=== PATIENT | female | born 1980 | race Caucasian/White ===

== ENCOUNTER 2017-04-03 10:20 | Emergency (ER) | payer MEDICAID, OTHER ==
[2017-04-03 10:44] VITALS: BP 132/84
--- NOTE | 2017-04-17 17:26 | UC ---
[facility] HPI - HPI Summary HPI Summary: 36 YEAR OLD FEMALE PRESENTS WITH COMPLAINS OF LARGE DENTAL ABSCESS. - History of Current Complaint Chief Complaint: UCDentalProblem Stated Complaint: ORAL COMPLAINT Time Seen by Provider: 04/03/17 10:44 Hx Last Menstrual Period: ~03/10/17 Pain Intensity: 6 Pain Scale Used: 0-10 Numeric - Allergies/Home Medications Allergies/Adverse Reactions: Allergies Allergy/AdvReac Type Severity Reaction Status Date / Time Diclofenac Allergy Severe SKIN Verified 04/03/17 10:39 LIN, THROAT TIGHTNESS Propoxyphene [From Darvon] Allergy Severe THROAT Verified 04/03/17 10:39 CLOSES, VOMITING Home Medications: Home Medications Acetaminophen [Acetaminophen Extra Stren] 1,000 mg PO Q6H PRN 04/03/17 [History Confirmed 04/03/17] Bupropion XL* [Wellbutrin XL *] 300 mg PO DAILY 04/03/17 [History Confirmed ] PMH/Surg Hx/FS Hx/Imm Hx - Surgical History Surgical History: Yes Surgery Procedure, Year, and Place: TUBAL LIGATION, BREAST ABSCESS, LEFT THUMB SURGERY. LEFT CARPAL TUNNEL SX--09/2013. RIGHT CARPAL TUNNEL SX-08/2014 - Social History Alcohol Use: Rare Substance Use Type: Prescribed Substance Use Comment - Amount & Last Used: oxycodone 5mg q6h prn Smoking Status (MU): Light Every Day Tobacco Smoker Type: Cigarettes Amount Used/How Often: ~1/4 PPD Length of Time of Smoking/Using Tobacco: Since Age 13 Have You Smoked in the Last Year: Yes Review of Systems Constitutional: Negative Skin: Negative Eyes: Negative ENT: Dental Pain Respiratory: Negative Cardiovascular: Negative Gastrointestinal: Negative Genitourinary: Negative Motor: Negative Neurovascular: Negative Musculoskeletal: Negative Neurological: Negative Psychological: Negative All Other Systems Reviewed And Are Negative: Yes Physical Exam Triage Information Reviewed: Yes Vital Signs: Initial Vital Signs Temp 36.3 C 04/03/17 10:37 Pulse 102 04/03/17 10:37 Resp 16 04/03/17 10:37 BP 132/84 04/03/17 10:37 Pulse Ox 98 04/03/17 10:37 Eye Exam: Normal ENT Exam: Normal Dental: Positive: Abscess @ Neck exam: Normal Neck: Positive: 1 Respiratory Exam: Normal Cardiovascular Exam: Normal Abdominal Exam: Normal Musculoskeletal Exam: Normal Neurological Exam: Normal Psychological Exam: Normal Skin Exam: Normal Dental Complaint Course/Dx - Course Course Of Treatment: DENTAL ABSCESS - Differential Dx/Diagnosis Provider Diagnoses: DENTAL ABSCESS Discharge - Discharge Plan Condition: Stable Disposition: AGAINST MEDICAL ADVICE Prescriptions: Amoxicillin/Clavulanate TAB* [Augmentin TAB 875*] 875 mg PO BID #20 tab Chlorhexidine MW 0.12% 473ML* [Peridex Mouth Wash 0.12%*] 473 ml MT TID PC #[id number] btl Patient Education Materials: Toothache (ED) Referrals: Abhi Gayle MD [Medical Doctor] - If Needed
== END 2017-04-03 10:53 | disposition home or self-care (01) ==
LOC: UCCORT 10:20
DX: K04.7 Periapical abscess without sinus (principal); F17.210 Nicotine dependence, cigarettes, uncomplicated
CPT/HCPCS: 99212; G0463

== ENCOUNTER 2018-03-20 15:30 | Emergency (ER) | payer OTHER ==
--- NOTE | 2018-03-20 16:38 | UC ---
Skin Complaint HPI - HPI Summary HPI Summary: Patient states that 4 days ago she dropped a cigarette on her left arm she states that she flexed her arm reflexively as a result got a burn. She admits that she has been picking at the site and now it has become red and swollen. She states that she is here because her mother thinks it is infected. She denies any joint pain she denies any fever or chills and offers no other complaints or past history does include recovery from drug abuse; however, patient is adamant that she has been clean for at least 2-3 years and this is not an injection site from any type of recent use. Her last tetanus shot was within 10 years. - History of Current Complaint Time Seen by Provider: 03/20/18 16:32 Stated Complaint: BURN - L ELBOW Hx Obtained From: Patient Hx Last Menstrual Period: ~03/10/17 Onset/Duration: Gradual Onset Timing: Constant Alleviating Factor(s): Nothing Associated Signs & Symptoms: Positive: Rash - Allergy/Home Medications Allergies/Adverse Reactions: Allergies Allergy/AdvReac Type Severity Reaction Status Date / Time diclofenac Allergy Severe Skin Verified 03/20/18 16:49 rodgers, throat tightness propoxyphene [From Darvon] Allergy Vomiting,throat Verified 03/20/18 16:49 closes Home Medications: Home Medications Dextroamphetamine/Amphetamine [Adderall 20 mg Tablet] 1 tab PO TID 03/20/18 [ History Confirmed 03/20/18] LORazepam TAB(*) [Ativan 1 MG TAB (*)] 1 mg PO BID 03/20/18 [History Confirmed 03/20/18] Methadone TAB* [Dolophine TAB*] 135 mg PO DAILY 03/20/18 [History Confirmed ] PARoxetine HCL TAB* [Paxil TAB*] 40 mg PO DAILY 03/20/18 [History Confirmed ] Review of Systems Constitutional: Negative Skin: Rash Eyes: Negative ENT: Negative Respiratory: Negative Cardiovascular: Negative Gastrointestinal: Negative Genitourinary: Negative Motor: Negative Neurovascular: Negative Musculoskeletal: Negative Neurological: Negative Psychological: Negative Is Patient Immunocompromised?: No All Other Systems Reviewed And Are Negative: Yes PMH/Surg Hx/FS Hx/Imm Hx - Additional Past Medical History Additional PMH: 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 Psychological History: Anxiety, Depression - Surgical History Surgical History: Yes Surgery Procedure, Year, and Place: TUBAL LIGATION, BREAST ABSCESS, LEFT THUMB SURGERY. LEFT CARPAL TUNNEL SX--09/2013. RIGHT CARPAL TUNNEL SX-08/2014 - Family History Known Family History: Positive: None - Social History Lives: With Family Alcohol Use: Rare Substance Use Type: Prescribed Substance Use Comment - Amount & Last Used: oxycodone 5mg q6h prn Smoking Status (MU): Light Every Day Tobacco Smoker Type: Cigarettes Amount Used/How Often: ~1/4 PPD Length of Time of Smoking/Using Tobacco: Since Age 13 Have You Smoked in the Last Year: Yes - Immunization History Vaccination Up to Date: Yes Physical Exam Triage Information Reviewed: Yes Appearance: Well-Appearing Vital Signs Reviewed: Yes Eyes: Positive: Conjunctiva Clear ENT: Positive: Pharynx normal, TMs normal. Negative: Nasal congestion, Nasal drainage Neck: Positive: Supple, Nontender, No Lymphadenopathy Respiratory: Positive: Lungs clear, Normal breath sounds Cardiovascular: Positive: RRR, No Murmur Abdomen Description: Positive: Nontender, No Organomegaly, Soft Bowel Sounds: Positive: Present Musculoskeletal: Positive: ROM Intact Neurological: Positive: Alert Skin Exam: Normal, Other - Left upper extremity exam: Mild erythema swelling and warmth to the antecubital fossa. There is a central superficial ulceration in the center of this area. The area is not fluctuant. There is no epitrochlear or axillary adenopathy and there is no streaking. The arm has full sensorivascular motor function. Culture obtained. Pt seemed to subconsciously pick at site during exam. Diagnostics - Laboratory Diagnostic Studies Completed/Ordered: culture is pending Course/Dx - Course Course Of Treatment: no concern for septic joint. nothing to I & D. will cover wound with silvadene at it is superficial and tx for possible MRSA. Pt insists not an IVDA site. Pt request a referal to [facility] for wound care given proximity and transportation. - Diagnoses Provider Diagnoses: Cellulitis L antecubital fossa. Discharge - Sign-Out/Discharge Documenting (check all that apply): Discharge/Admit/Transfer - Discharge Plan Condition: Stable Disposition: HOME Prescriptions: Sulfamethox/Trimethoprim DS* [Bactrim DS 800/160 TAB*] 1 tab PO BID #20 tab Patient Education Materials: Cellulitis (DC) Referrals: Mohinder Child [Medical Doctor] - 2 Days Additional Instructions: use a thin layer of the silvadene twice daily for 7 days to open wound only - Billing Disposition and Condition Condition: STABLE Disposition: Home
[2018-03-20 16:40] VITALS: BP 115/73
[2018-03-20] MEDS ORDERED: Silver Sulfadiazine 1%* 20 GM TOPICAL ONE (17:05)
== END 2018-03-20 17:32 | disposition home or self-care (01) ==
LOC: UCCORT 15:30
DX: L03.114 Cellulitis of left upper limb (principal); X08.8XXA Exposure to other specified smoke, fire and flames, initial encounter; Y92.9 Unspecified place or not applicable; Y93.89 Activity, other specified; F17.210 Nicotine dependence, cigarettes, uncomplicated; Z88.8 Allergy status to other drugs, medicaments and biological substances; F41.8 Other specified anxiety disorders; F19.10 Other psychoactive substance abuse, uncomplicated
CPT/HCPCS: 87070; 87077; 87186; 87205; 87640; 87641; 99212; A9270-GY; G0463